=== PATIENT | female | born 1950 | race African-American/Black ===

== ENCOUNTER 2024-05-01 17:37 | Emergency (ER) | payer MEDICARE, OTHER ==
[~2024-05-01] VITALS: Ht 160 cm; Wt 86.4 kg
[2024-05-01] MEDS ORDERED: CHL25 PO (18:11)
[2024-05-01] MEDS ORDERED: HYDR10TA31 PO (18:11)
[2024-05-01] MEDS ORDERED: HYDR25TA2 PO (18:11)
[2024-05-01] MEDS ORDERED: CARV3 PO (18:11)
[2024-05-01 19:48] LABS: BASOPHILS % (AUTO) 0.6 % (0.0-2.0); EOSINOPHILS % (AUTO) 2.6 % (1.0-6.0); HEMATOCRIT 37.8 % (36-46); HEMOGLOBIN 12.3 g/dL (12.0-16.0); MEAN CORPUSCULAR HGB CONC 32.5 G/dL (31.0-37.0); MEAN CORPUSCULAR VOLUME 89 fL (80-100); MONOCYTES # (AUTO) 0.7 K/uL (0.1-1.0); MONOCYTES % (AUTO) 13.2 % (2.0-9.0); NEUTROPHILS # (AUTO) 2.4 K/uL (1.8-7.7); NEUTROPHILS % (AUTO) 45.6 % (40.0-70.0); PLATELET COUNT (AUTO) 248 K/uL (150-450); RED BLOOD CELL COUNT(AUTO) 4.23 MIL/uL (4.00-5.20); RED CELL DISTRIBUTION WIDTH 13.7 % (11.5-14.5); WHITE BLOOD COUNT (AUTO) 5.3 K/uL (4.5-11.0)
[2024-05-01 19:57] LABS: ANION GAP 3 mmol/L (8-16); CALCIUM, TOTAL 9.6 mg/dL (8.8-10.5); CARBON DIOXIDE 36 mmol/L (22-29); CHLORIDE 103 mmol/L (98-107); CREATININE 1.01 mg/dL (0.60-1.30); GLOMERULAR FILTR. RATE CALC > 60 mL/min (>60); GLUCOSE,RANDOM 101 mg/dL (70-110); POTASSIUM 3.6 mmol/L (3.5-5.1); SODIUM SERUM 142 mmol/L (136-145); UREA NITROGEN, BLOOD 22 mg/dL (7-18)
[2024-05-01 20:02] LABS: ALBUMIN 3.3 g/dL (3.4-5.0); BILIRUBIN,DIRECT 0.1 mg/dL (0.00-0.20); BILIRUBIN,TOTAL 0.3 mg/dL (0.1-1.0); TOTAL PROTEIN, SERUM 6.5 g/dL (6.4-8.2)
[2024-05-01 20:05] LABS: PROTHROMBIN TIME 11.1 SEC (9.4-11.6); TROPONIN I-HIGH SENSITIVITY 12 ng/L (<51)
[2024-05-01] MEDS ORDERED: ONDANSETRON HCL 4 MG/2 ML VIAL IVP PRN (21:30)
[2024-05-01] MEDS ORDERED: ACETAMINOPHEN 325 MG TABLET PO PRN (21:30)
[2024-05-01] MEDS ORDERED: SODIUM CHLORIDE 0.9% 100 ML ONE (21:37)
[2024-05-01 21:44] LABS: APPEARANCE,URINE HAZY (CLEAR); BILIRUBIN,URINE NEGATIVE (NEGATIVE); COLOR,URINE YELLOW (YELLOW); GLUCOSE, URINE (UA) NEGATIVE (NEGATIVE); KETONES,URINE TRACE mg/dL (NEGATIVE); LEUKOCYTE ESTERASE ,URINE LARGE (NEGATIVE); NITRATE,URINE NEGATIVE (NEGATIVE); OCCULT BLOOD,URINE NEGATIVE (NEGATIVE); PH,URINE 6.5 (5.0-8.0); PH,URINE DRUG SCREEN 6.5 (5.0-8.0); PROTEIN,URINE TRACE mg/dL (NEGATIVE); SPECIFIC GRAVITIY, URINE 1.028 (1.003-1.030); UROBILINOGEN,URINE <=1.0 mg/dL (<=1.0)
[2024-05-01 21:50] LABS: ALCOHOL, URINE DRUG SCREEN NEGATIVE (NEGATIVE); AMPHET/METH SCREEN,URINE NEGATIVE (NEGATIVE); BARBITURATE SCREEN, URINE NEGATIVE (NEGATIVE); BENZODIAZEPINES SCREEN,URINE NEGATIVE (NEGATIVE); CANNABINOID SCREEN,URINE NEGATIVE (NEGATIVE); COCAINE SCREEN,URINE NEGATIVE (NEGATIVE); METHADONE SCREEN, URINE NEGATIVE (NEGATIVE); OPIATE SCREEN,URINE NEGATIVE (NEGATIVE); PHENCYCLIDINE SCREEN,URINE NEGATIVE (NEGATIVE)
[2024-05-01 21:55] LABS: BACTERIA,URINE Moderate /HPF (None Seen); RBC,URINE 0-2 /HPF (0-2)
[2024-05-01 21:56] LABS: SQUAMOUS EPITHELIAL CELL,UR Moderate /LPF (None Seen)
[2024-05-01 23:00] VITALS: BP 164/70; PULSE 63; RESP 18; TEMP 97.3; O2SAT 97
[2024-05-02] MEDS ORDERED: HEPARIN SODIUM,PORCINE 5,000 UNITS/ML VIAL SQ SCH (05:00)
[2024-05-02] MEDS ORDERED: DOCUSATE SODIUM 100 MG CAPSULE PO SCH (09:00)
== END 2024-05-02 01:25 | disposition short-term general hospital (02) ==
LOC: EMS 17:44
DX: R47.01 Aphasia (principal); I10 Essential (primary) hypertension; Z79.899 Other long term (current) drug therapy
CPT/HCPCS: 99285; 70450; 71045; 80048; 80076; 81001; 84484; 85025; 85610; 85730; 87086; 36415; 93005; 80307; G0480; J7050